=== PATIENT | male | born 1990 | race African-American/Black ===

== ENCOUNTER 2016-09-23 21:54 | Emergency (ER) | payer BC, OTHER ==
[~2016-09-23 21:54] MED LIST: CEPH500C3 PO; LORT7.5T3 PO
[2016-09-23 22:19] VITALS: BP 103/71; PULSE 96; RESP 20; TEMP 100; O2SAT 98
--- NOTE | 2016-09-23 22:55 | PD ---
HPI . Sore throat Chief Complaint: Cold / Flu Symptoms Time Seen by Provider: 22:48 Travel History International Travel<30 days: No Contact w/Intl Traveler<30days: No Traveled to known affect area: No History of Present Illness HPI Patient presents with a chief complaint of sore throat, fever and myalgias for 4 days. He states that he was able to get his fever did break by rubbing alcohol on his skin. Otherwise, there have been no exacerbating or relieving factors. He has not tried any oral medication such as Tylenol or ibuprofen. PFSH Past Medical History Cancer: No Diabetes: No Diminished Hearing: No Hepatitis: No Hiatal Hernia: No Thyroid Disease: No Tetanus Vaccination: Unknown Influenza Vaccination: No ?: Not Past Surgical History Pacemaker: No Other Surgery: Yes Social History Alcohol Use: No Tobacco Use: No Substance Use: No Allergies-Medications (Allergen,Severity, Reaction): Coded Allergies: No Known Allergies (Verified , 03/30/11) Reported Meds & Prescriptions Reported Meds & Active Scripts Active Review of Systems Except as stated in HPI: all other systems reviewed are Neg General / Constitutional: Positive: Fever, Chills HENT: Positive: Sore Throat, No: Rhinorrhea, Congestion Respiratory: No: Cough Musculoskeletal: Positive: Myalgias Physical Exam Narrative GENERAL: Healthy-appearing young man in no acute distress. SKIN: Warm and dry. HEAD: Atraumatic. Normocephalic. EYES: Pupils equal and round. Extraocular movements are intact. ENT: No nasal bleeding or discharge. Mucous membranes pink and moist. Mild erythema of the oropharynx. No tonsillar enlargement or exudate. NECK: Trachea midline. Neck is supple. There is no cervical lymphadenopathy. CARDIOVASCULAR: Regular rate and rhythm. Heart sounds are normal. RESPIRATORY: No accessory muscle use. Lungs are clear with full air movement throughout. MUSCULOSKELETAL: No obvious deformities. No edema. NEUROLOGICAL: Awake and alert. No obvious cranial nerve deficits. Motor grossly within normal limits. Normal speech. PSYCHIATRIC: Appropriate mood and affect; insight and judgment normal. Data Data Last Documented VS Vital Signs Date Time Temp Pulse Resp B/P Pulse Ox O2 Delivery O2 Flow Rate FiO2 09/23/16 22:19 100.0 96 20 103/71 98 Orders Group A Rapid Strep Screen (09/23/16 22:49) Ibuprofen (Motrin) (09/23/16 23:00) Strep Culture (Group A) (09/23/16 23:00) [facility] Medical Decision Making Medical Screen Exam Complete: Yes Emergency Medical Condition: Yes Differential Diagnosis Differential diagnosis of sore throat includes but is not limited to viral illness, strep throat, mononucleosis, retropharyngeal abscess, peritonsillar abscess Narrative Course Patient presents with about a 4 day history of a sore throat associated with fevers and chills and myalgias. Rapid strep screen has been ordered. Strep screen is negative. Patient should continue salt water gargles and use throat lozenges. Tylenol or ibuprofen as needed for fever and body aches. The history, exam, diagnostic testing, and current condition do not suggest any significant pathology to warrant further testing, continued ED treatment, admission, or surgical evaluation at this point. The patient's condition is stable and appropriate for discharge. Diagnosis Primary Impression: Pharyngitis Qualified Code: J02.9 - Pharyngitis, unspecified etiology Patient Instructions: General Instructions, Pharyngitis (DC) Additional Instructions: Continue warm salt water gargles. You may also use throat lozenges. Drink lots of fluids. Tylenol and/or ibuprofen as needed for fever and body aches. Disposition: 01 DISCHARGE HOME Condition: Stable Marlene Arizmendi MD Sep 23, 2016 22:55
[2016-09-23] MEDS ORDERED: IBUPROFEN 800 MG TAB PO ONE (23:00)
== END 2016-09-23 23:42 | disposition home or self-care (01) ==
LOC: PHEFT 21:54
DX: J02.9 Acute pharyngitis, unspecified (principal)
CPT/HCPCS: 87081; 87880; 99283

== ENCOUNTER 2017-03-07 12:21 | Emergency (ER) | payer BC, MEDICAID ==
[~2017-03-07] VITALS: Ht 180.3 cm; Wt 83.1 kg
[2017-03-07 12:30] VITALS: BP 133/67; PULSE 84; RESP 16; TEMP 98.5; O2SAT 98
--- NOTE | 2017-03-07 13:11 | PD ---
HPI Chief Complaint: Injury Time Seen by Provider: 12:54 Travel History International Travel<30 days: No Contact w/Intl Traveler<30days: No Traveled to known affect area: No History of Present Illness HPI Patient comes in complaining of left shoulder pain has been ongoing intermittently for a while and got worse today after doing some heavy lifting. Patient denies any direct trauma. Patient has pain is burning sensation in his left shoulder radiates distally causing a tingling sensation. Patient denies doing anything for this prior coming to the emergency department. Pain is worse with certain movement. Denies anything making it better. Patient denies ever having this evaluated previously. Denies any chest pain, shortness of breath, fevers, or neck pain. PFSH Past Medical History Medical History: Denies Significant Hx Cancer: No Diabetes: No Diminished Hearing: No Hepatitis: No Hiatal Hernia: No Thyroid Disease: No Past Surgical History Pacemaker: No Other Surgery: Yes Social History Alcohol Use: No Tobacco Use: No Substance Use: No Allergies-Medications (Allergen,Severity, Reaction): Coded Allergies: No Known Allergies (Verified Adverse Reaction, Unknown, 03/07/17) Reported Meds & Prescriptions Reported Meds & Active Scripts Active Flexeril (Cyclobenzaprine HCl) 10 Mg Tab 10 Mg PO Q8HR PRN Naprosyn (Naproxen) 500 Mg Tab 500 Mg PO Q12HR PRN Review of Systems Except as stated in HPI: all other systems reviewed are Neg Physical Exam Narrative GENERAL: Well-developed, well nourished, in no acute distress, and non-ill appearing. SKIN: Focused skin assessment warm and dry. HEAD: Atraumatic. Normocephalic. EYES: Pupils equal and round. EOMI. No scleral icterus. No injection or drainage. ENT: No nasal bleeding or discharge. Mucous membranes pink and moist. NECK: Trachea midline. Supple. No nuclear rigidity. CARDIOVASCULAR: Radial pulses 2+, intact, and equal bilaterally. Capillary refill less than 2 seconds. RESPIRATORY: No accessory muscle use. No respiratory distress. MUSCULOSKELETAL: No obvious deformities. No clubbing. No cyanosis. No edema. Decreased range of motion right shoulder secondary to pain. Shoulder:FROM equal BL with passive flexion, extension, adduction, internal/external rotation, and pronation/supination, but decreased with abduction secondary to pain. Sensation equal BL deltoid muscles. Pulses equal BL distal to injury. Capillary refill less than 2 seconds distal to injury and equal BL. FROM distal to injury and equal BL. Strength distal to injury equal BL. NV intact distal to injury equal BL. Flexion and extension of thumb equal BL. Equal strength and movement with abduction/adductions of BL fingers. 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 No crepitus. Patient reports point tenderness over left deltoid. NEUROLOGICAL: Awake and alert. No obvious cranial nerve deficits. Motor grossly within normal limits. Normal speech. PSYCHIATRIC: Appropriate mood and affect; insight and judgment normal. Data Data Last Documented VS Vital Signs Date Time Temp Pulse Resp B/P (MAP) Pulse Ox O2 Delivery O2 Flow Rate FiO2 03/07/17 12:30 98.5 84 16 133/67 (89) 98 Orders Orders Ketorolac Inj (Toradol Inj) (03/07/17 13:15) Ed Discharge Order (03/07/17 13:06) [facility] Medical Decision Making Medical Screen Exam Complete: Yes Emergency Medical Condition: Yes Differential Diagnosis Fracture, strain, contusion, acute on chronic pain, dislocation Narrative Course There is no clinical evidence for fracture. There is no clinical evidence to suspect bony injury by exam. No obvious ligamental injury or internal derangement is noted at this time. The distal extremity appears neurovascularly intact, without evidence of neurovascular injury nor compartment syndrome. Tendon exam also was intact. The patient was discharged on pain medication and given warnings for vascular compromise. The patient is to follow up with primary care provider and/or Orthopedics. The patient agrees with plan. Patient in no obvious distress upon re-evaluation. Patient was asked if they wanted to speak to my attending, which the patient did not wish to do at this time. Any questions/concerns in reference to patient diagnosis/condition discussed and clarified prior to patient's discharge. Reinforced sheer importance of close follow up with patient's primary physician or primary care clinic. Instructed patient to return to ED immediately, if symptoms return/ worsen. Patient showed understanding of above instructions. Further instructions and recommendations were detailed in discharge paperwork. Patient ambulated without difficulty out of ED at discharge. Diagnosis Primary Impression: Left shoulder pain Qualified Codes: M25.512 - Pain in left shoulder Referrals: Rogerio Real MD Patient Instructions: General Instructions, Shoulder Pain (ED) Additional Instructions: Follow-up with your primary care physician and/or orthopedic in 2-5 days for reevaluation. Take all medication as prescribed. Apply ice to affected area 20 minutes per hour as needed for pain. Return to the emergency department if symptoms get worse. Med/Other Pt SpecificInfo: Prescription(s) given Scripts Cyclobenzaprine (Flexeril) 10 Mg Tab 10 MG PO Q8HR Y for MUSCLE PAIN, #12 TAB 0 Refills Prov: Dom Nicole MD 03/07/17 Naproxen (Naprosyn) 500 Mg Tab 500 MG PO Q12HR Y for PAIN SCALE 1 TO 10, #14 TAB 0 Refills Prov: Dom Nicole MD 03/07/17 Disposition: 01 DISCHARGE HOME Condition: Stable Thomas Gay Mar 07, 2017 13:11
[2017-03-07] MEDS ORDERED: CYCL10TA PO (13:13)
[2017-03-07] MEDS ORDERED: NAPR500 PO (13:13)
[2017-03-07] MEDS ORDERED: KETOROLAC TROMETHAMINE 60 MG/2 ML (IM) VIAL IM ONE (13:15)
== END 2017-03-07 13:29 | disposition home or self-care (01) ==
LOC: PHEFT 12:21
DX: M25.512 Pain in left shoulder (principal)
CPT/HCPCS: 96372; 99284; J1885

== ENCOUNTER 2017-05-22 15:16 | Emergency (ER) | payer MEDICAID ==
[~2017-05-22 15:16] MED LIST changes: -CEPH500C3 PO; +CYCL10TA PO; -LORT7.5T3 PO; +NAPR500 PO
[2017-05-22 15:35] VITALS: BP 112/71; PULSE 89; RESP 18; TEMP 98.8; O2SAT 99
--- NOTE | 2017-05-22 16:53 | PD ---
HPI Chief Complaint: GI Complaint Time Seen by Provider: 15:34 Travel History International Travel<30 days: No Contact w/Intl Traveler<30days: No Traveled to known affect area: No History of Present Illness HPI 26-year-old male presents to emergency department for evaluation of fever, chills, body aches. Patient states he has been vomiting all night. He began having diarrhea today. Reports moderate epigastric pain, mostly after vomiting. He has no significant medical history. No other symptoms to report. PFSH Past Medical History Medical History: Denies Significant Hx Cancer: No Diabetes: No Diminished Hearing: No Hepatitis: No Hiatal Hernia: No Thyroid Disease: No Past Surgical History Pacemaker: No Other Surgery: Yes Social History Alcohol Use: No Tobacco Use: Yes (1-2 PER DAY) Substance Use: No Allergies-Medications (Allergen,Severity, Reaction): Coded Allergies: No Known Allergies (Verified Adverse Reaction, Unknown, 03/07/17) Reported Meds & Prescriptions Reported Meds & Active Scripts Active Flexeril (Cyclobenzaprine HCl) 10 Mg Tab 10 Mg PO Q8HR PRN Naprosyn (Naproxen) 500 Mg Tab 500 Mg PO Q12HR PRN Review of Systems Except as stated in HPI: all other systems reviewed are Neg Physical Exam Narrative This is a well-nourished, nontoxic-appearing male patient, sitting up in the chair, no acute distress. He has a non-ataxic gait. He has even respirations. He has no obvious deformities. He is awake alert and oriented 3. He speaks clearly. He moves all extremities. Data Data Last Documented VS Vital Signs Date Time Temp Pulse Resp B/P (MAP) Pulse Ox O2 Delivery O2 Flow Rate FiO2 05/22/17 15:35 98.8 89 18 112/71 (85) 99 Orders Orders Complete Blood Count With Diff (05/22/17 15:36) Comprehensive Metabolic Panel (05/22/17 15:36) Urinalysis - C+S If Indicated (05/22/17 15:36) Influenzae A/B Antigen (05/22/17 15:36) Lipase (05/22/17 15:36) MDM Medical Decision Making Medical Screen Exam Complete: Yes Emergency Medical Condition: Yes Medical Record Reviewed: Yes Differential Diagnosis Gastroenteritis versus influenza versus gastritis versus cholecystitis versus pancreatitis Narrative Course 26-year-old male presents to the emergency department for evaluation of flulike symptoms. Patient appears nontoxic. Workup is initiated in triage. Prior to that placement, patient chooses to leave.AMA: The risks of leaving against medical advice without further evaluation treatment were discussed with the patient. These risks include cardiac dysfunction, cardiac dysrhythmia, possible heart attack, possible stroke or . The patient indicated understanding of these risks and appeared to have the capacity to make this decision. Diagnosis Primary Impression: Nausea & vomiting Additional Impression: Diarrhea Disposition: 07 AGAINST MEDICAL ADVICE Condition: Stable Tammy Mccracken May 22, 2017 16:53
== END 2017-05-22 17:22 | disposition left against medical advice (07) ==
LOC: NED 15:16
DX: R11.2 Nausea with vomiting, unspecified (principal); R19.7 Diarrhea, unspecified; R10.13 Epigastric pain; F17.200 Nicotine dependence, unspecified, uncomplicated; Z79.899 Other long term (current) drug therapy
CPT/HCPCS: 99281